=== PATIENT | female | born 1985 | race Caucasian/White ===

== ENCOUNTER 2017-11-20 18:24 | Emergency (ER) | payer SELFPAY ==
[2017-11-20 20:07] VITALS: BP 142/87
[2017-11-20 20:29] LABS: Basophils # (Auto) 0.2 K/mm3 (0.0-0.1); Basophils % (Auto) 1.1 % (0.0-1.8); Eosinophils # (Auto) 0.3 K/mm3 (0.0-0.4); Eosinophils % (Auto) 1.9 % (0.0-4.3); Hematocrit 42.6 % (30.3-42.9); Hemoglobin 14.4 gm/dl (10.1-14.3); Lymphocytes # (Auto) 3.7 K/mm3 (1.2-5.4); Lymphocytes % (Auto) 23.4 % (13.4-35.0); Mean Corpuscular HGB Conc 34 % (30-34); Mean Corpuscular Hemoglobin 30 pg (28-32); Mean Corpuscular Volume 88 fl (79-97); Monocytes # (Auto) 0.9 K/mm3 (0.0-0.8); Platelet Count 296 K/mm3 (140-440); Red Blood Count 4.87 M/mm3 (3.65-5.03)
== END 2017-11-20 22:10 | disposition left against medical advice (07) ==
LOC: ED 18:24
DX: Z53.21 Procedure and treatment not carried out due to patient leaving prior to being seen by health care provider (principal)
CPT/HCPCS: 36415; 84702; 85025; 86850; 86900; 86901

== ENCOUNTER 2020-01-20 08:05 | Emergency (ER) | payer OTHER ==
[2020-01-20] MEDS ORDERED: ACETAMINOPHEN 500 MG TAB PO ONE (10:02)
--- NOTE | 2020-01-20 10:15 | Emergency Department Report ---
ED Extremity Problem HPI - General Chief complaint: Extremity Injury, Lower Stated complaint: RT FOOT PAIN Time Seen by Provider: 01/20/20 09:24 Source: patient Mode of arrival: Ambulatory Limitations: No Limitations - History of Present Illness Initial comments: 34-year-old female presents to the emergency room for right leg thigh pain and swelling that started yesterday. Patient states that she is approximately 9 weeks . Patient reports she has not taken anything for pain. Patient denies any injury. Patient is currently taking vitamins has an allergy to Phenergan and Reglan. Denies any abdominal pain vaginal bleeding chest pain shortness of breathing nausea vomiting. MD Complaint: extremity pain, extremity swelling Onset/Timin -: days(s) Location: right, lower extremity History of Same: No Radiation: distal Severity scale (0 -10): 9 Quality: stabbing, sharp Consistency: intermittent Improves with: rest Worsens with: walking - Related Data Previous Rx's Medication Instructions Recorded Last Taken Type Ondansetron [Zofran Odt] 4 mg PO Q8HR #20 tab.rapdis 07/26/16 Unknown Rx Pantoprazole [Protonix] 40 mg PO QDAY #20 tablet 07/26/16 Unknown Rx Allergies Allergy/AdvReac Type Severity Reaction Status Date / Time metoclopramide HCl Allergy Swelling Verified 01/20/20 08:06 [From Reglan] promethazine HCl Allergy Swelling Verified 01/20/20 08:06 [From Phenergan] ED Review of Systems ROS: Stated complaint: RT FOOT PAIN Other details as noted in HPI Comment: All other systems reviewed and negative ED Past Medical Hx - Past Medical History Hx Hypertension: No Hx Congestive Heart Failure: No Hx Diabetes: No Hx Deep Vein Thrombosis: No Hx Renal Disease: No Hx Sickle Cell Disease: No Hx Seizures: No Hx Asthma: No Hx COPD: No Hx HIV: No Additional medical history: Hyperemesis gravidarum. gestational diabetes - Surgical History Hx Cholecystectomy: Yes Hx Appendectomy: Yes Additional Surgical History: gall bladder and appendix removed - Social History Smoking Status: Never Smoker Substance Use Type: None - Medications Home Medications: Home Medications Medication Instructions Recorded Confirmed Last Taken Type Ondansetron [Zofran Odt] 4 mg PO Q8HR #20 tab.rapdis 07/26/16 Unknown Rx Pantoprazole [Protonix] 40 mg PO QDAY #20 tablet 07/26/16 Unknown Rx ED Physical Exam - General Limitations: No Limitations General appearance: alert, in distress (Appears uncomfortable with movement) - Head Head exam: Present: atraumatic, normocephalic - Eye Eye exam: Present: normal appearance - ENT ENT exam: Present: mucous membranes moist - Neck Neck exam: Present: normal inspection - Respiratory Respiratory exam: Present: normal lung sounds bilaterally. Absent: respiratory distress - Cardiovascular Cardiovascular Exam: Present: regular rate, normal rhythm. Absent: systolic murmur, diastolic murmur, rubs, gallop - Expanded Lower Extremity Exam Right Hip exam: Present: full ROM, tenderness Upper Leg exam: Present: tenderness Knee exam: Present: full ROM Lower Leg exam: Present: normal inspection Ankle exam: Present: normal inspection Foot/Toe exam: Present: normal inspection - Back Exam Back exam: Present: normal inspection - Neurological Exam Neurological exam: Present: alert, oriented X3 - Psychiatric Psychiatric exam: Present: normal affect, normal mood - Skin Skin exam: Present: warm, dry, intact, normal color. Absent: rash ED Course Vital Signs 01/20/20 08:11 Temperature 98.6 F Pulse Rate 83 Respiratory 20 Rate Blood Pressure 134/63 O2 Sat by Pulse 98 Oximetry ED Medical Decision Making - Radiology Data Radiology results: report reviewed Patient: OLY SHEPARD MR#: [id number] : 1985 Acct:[id number] Age/Sex: 34 / F ADM Date: 01/20/20 Loc: ED Attending Dr: Ordering Physician: BEN KENDALL Date of Service: 01/20/20 Procedure(s): VL venous duplex LE RT Accession Number(s): [id number] cc: BEN KENDALL DUPLEX DOPPLER LOWER EXTREMITY VEINS, RIGHT INDICATION: swelling and pain. TECHNIQUE: Duplex doppler imaging was performed through the veins of the right lower extremity using venous compression and other maneuvers. COMPARISON: None available. FINDINGS: Common Femoral vein: Negative. Superficial Femoral vein: Negative. Popliteal vein: Negative. Calf veins: Negative. Additional findings: None. IMPRESSION: 1. No sonographic evidence for DVT in the right lower extremity. Signer Name: Alejandro Roland MD Signed: 01/20/2020 11:31 AM Workstation Name: [id number] Transcribed By: FRANCIS Dictated By: Alejandro Roland MD Electronically Authenticated By: Alejandro Roland MD Signed Date/Time: 01/20/20 113 DD/ 29 TD/TT: - Medical Decision Making 34-year-old female presents to the emergency room for right leg thigh pain and swelling that started yesterday. Patient states that she is approximately 9 weeks . Patient reports she has not taken anything for pain. Patient denies any injury. Patient is currently taking vitamins has an allergy to Phenergan and Reglan. Denies any abdominal pain vaginal bleeding chest pain shortness of breathing nausea vomiting. Venous Doppler is negative for any evidence of a DVT. I recommend patient to take Tylenol and to follow-up with her [facility]. Critical care attestation.: If time is entered above; I have spent that time in minutes in the direct care of this critically ill patient, excluding procedure time. ED Disposition Clinical Impression: Muscle strain of right lower leg Disposition: DC-01 TO HOME OR SELFCARE Is pt being admited?: No Does the pt Need Aspirin: No Condition: Stable Instructions: Muscle Strain (ED) Additional Instructions: Ultrasounds negative for any DVT. I recommend for you to follow-up with your [facility] provider you can take Tylenol as needed for pain management. Increase your fluid intake Referrals: PRIMARY CAREMD [Primary Care Provider] - 3-5 Days [facility] [Provider [facility]] - 3-5 Days [facility] [Provider Group] - 3-5 Days [facility] [Provider Group] - 3-5 Days
--- NOTE | 2020-01-20 11:35 | Vascular Lab Report ---
DUPLEX DOPPLER LOWER EXTREMITY VEINS, RIGHT INDICATION: swelling and pain. TECHNIQUE: Duplex doppler imaging was performed through the veins of the right lower extremity using venous comp ression and other maneuvers. COMPARISON: None available. FINDINGS: Common Femoral vein: Negative. Superficial Femoral vein: Negative. Popliteal vein: Negative. Calf veins: Negative. Additional findings: None. IMPRESSION: 1. No sonographic evidence for DVT in the right lower extremity. Signer Name: Alejandro Roland MD Signed: 01/20/2020 11:31 AM Workstation Name: [id number]
[2020-01-20 12:58] VITALS: BP 129/61
== END 2020-01-20 12:58 | disposition home or self-care (01) ==
LOC: ED 08:05
DX: S86.811A Strain of other muscle(s) and tendon(s) at lower leg level, right leg, initial encounter (principal); Z88.8 Allergy status to other drugs, medicaments and biological substances; Z79.899 Other long term (current) drug therapy; Z90.49 Acquired absence of other specified parts of digestive tract; X58.XXXA Exposure to other specified factors, initial encounter; Y93.89 Activity, other specified; Y92.89 Other specified places as the place of occurrence of the external cause; Y99.8 Other external cause status
CPT/HCPCS: 99282; 99283

== ENCOUNTER 2022-01-09 14:50 | Emergency (ER) | payer OTHER ==
[2022-01-09] MEDS ORDERED: HYDROcodone/ACETAMINOPHEN 5-325 MG TAB PO STA (16:22)
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
--- NOTE | 2022-01-09 18:12 | Cat Scan Report ---
CT HEAD WITHOUT CONTRAST INDICATION / CLINICAL INFORMATION: headache. TECHNIQUE: CT of the head was performed without administration of intravenous contrast. All CT scans at this location are performed using CT dose reduction for ALARA by means of automated exposure contr ol. COMPARISON: None available. FINDINGS: CEREBRAL PARENCHYMA: No significant abnormality. No acute territorial infarct. HEMORRHAGE: None. EXTRA-AXIAL SPACES: Normal in size and morphology for the patient's age. VENTRICULAR SYSTEM: Normal in size and morphology for the patient's age. MIDLINE SHIFT / HERNIATION: None. CEREBELLUM / BRAINSTEM: No significant abnormality. ORBITS: Normal as visualized. SOFT TISSUES: No significant abnormality. SKULL: No significant abnormality. PARANASAL SINUSES / MASTOID AIR CELLS: Normal as visualized. ADDITIONAL FINDINGS: None. IMPRESSION: 1. No acute intracranial abnormality. Signer Name: Reyes Velarde II, MD Signed: 01/09/2022 6:08 PM Workstation Name: [id number]
[2022-01-09] MEDS ORDERED: oxyCODONE /ACETAMINOPHEN 5-325MG TAB PO ONE (21:42)
[2022-01-09 21:51] VITALS: BP 138/72
== END 2022-01-09 21:50 | disposition home or self-care (01) ==
LOC: ED 14:50
DX: S00.03XA Contusion of scalp, initial encounter (principal); S09.90XA Unspecified injury of head, initial encounter; Z91.09 Other allergy status, other than to drugs and biological substances; X58.XXXA Exposure to other specified factors, initial encounter; Y93.89 Activity, other specified; Y92.89 Other specified places as the place of occurrence of the external cause; Y99.8 Other external cause status
CPT/HCPCS: 70450; 99283